=== PATIENT | male | born 1950 | race Caucasian/White ===

== ENCOUNTER → 2017-10-02 10:24 | Outpatient (CLI) | payer MEDICARE, SELFPAY ==
--- NOTE | 2017-10-02 | DI.MRI.S_ITS ---
PROCEDURE: MR LUMBAR SPINE WO CON INDICATIONS: BILATERAL LOWER EXTREMITY PAIN TECHNIQUE: Noncontrast sagittal T1 spin echo and T2 fast echo, sagittal STIR, axial T1 and T2 fast spin echo through the lumbar spine. In cases with scoliosis, additional coronal T2 fast spin echo may be performed. COMPARISON: [facility], , L-SPINE WITHOUT CONTRAST, 04/25/2016, 14:18. [facility], CR, XR LUMBAR SPINE WITH OBLIQUES, 04/05/2017, 9:17. FINDINGS: Image quality: Excellent. Alignment and Curvature: There is a transitional element at L5. The same numbering system that was employed on the prior 04.25.16 MRI report will be employed on the current report. There is mild grade 1 retrolisthesis of T12 on L1, L1-L2, and L2 on L3. Mild grade 1 anterolisthesis of L4 on L5. Bone Marrow: Marrow is of normal overall signal. No acute vertebral body compression fractures. There is mild reactive signal within the endplates adjacent to the T12-L1, L1-L2, L2-L3, and L3-L4 intervertebral discs. Spinal Cord: Conus medullaris terminates at the L1-L2 disc space level. Visualized cord demonstrates normal signal and size. Paraspinous Soft Tissues: No paravertebral masses. L1-L2: Disc desiccation and diffuse disc bulge. Bilateral facet hypertrophy. Epidural lipomatosis. Moderate canal stenosis. Moderate right and mild left foraminal stenosis. No change. L2-L3: Disc desiccation and diffuse disc bulge. Bilateral facet and ligament hypertrophy. Epidural lipomatosis. Mild to moderate canal stenosis. Mild foraminal stenosis bilaterally. No change. L3-L4: Disc desiccation and diffuse disc bulge. Bilateral facet and ligamentum flavum hypertrophy. Epidural lipomatosis. Severe canal stenosis. Mild foraminal stenosis bilaterally. No change. L4-L5: Disc height loss and desiccation, as well as diffuse disc bulge. Bilateral facet hypertrophy. Mild canal stenosis. No foraminal stenosis bilaterally. No change. L5-S1: Bilateral facet hypertrophy. No significant canal, nor foraminal stenosis. IMPRESSION: 1. Transitional anatomy at the lumbosacral junction as described above and on the montage panel. 2. No change in severe canal stenosis at L3-L4 secondary to disc and facet disease, ligamentum flavum hypertrophy, and epidural lipomatosis. 3. No change in multilevel foraminal stenoses, worst on the right at L1-L2 where there is moderate foraminal stenosis. Dictated by: Aldair Hager M.D. on 10/02/2017 at 13:37 Approved by: Aldair Hager M.D. on 10/02/2017 at 13:41
== END ==
PROVIDERS: Family Provider Registered Nurse; PCP Registered Nurse; Referring Provider Orthopaedic Surgery; Visit Provider Physical Medicine & Rehabilitation Pain Medicine
DX: M48.061 Spinal stenosis, lumbar region without neurogenic claudication (principal)
CPT/HCPCS: 72148

== ENCOUNTER → 2018-08-15 12:59 | Outpatient (CLI) | payer MEDICARE, SELFPAY ==
--- NOTE | 2018-08-15 | DI.MRI.S_ITS ---
PROCEDURE: MR SHOULDER RT WO CON INDICATIONS: Unspecified disorder of synovium and tendon, right TECHNIQUE: Noncontrast oblique coronal T2 fast spin echo with fat saturation, oblique sagittal T1 spin echo and T2 fast spin echo with fat saturation, axial T1 spin echo and T2 fast spin echo with fat saturation through the shoulder. COMPARISON: None. FINDINGS: Image quality: Excellent. Rotator cuff: There is tendinosis and moderate grade articular surface partial thickness tear involving distal supraspinatus and infraspinatus at the insertion the humeral head extending to musculotendinous junction. Focal full-thickness perforation involving most anterior fibers of the distal supraspinatus at its insertion the humeral head is seen with approximately 1.7 cm medial retraction of torn tendon fibers. Tendinosis and low-grade intrasubstance partial thickness involving distal subscapularis is seen. Sagittal images demonstrate mild supraspinatus muscle atrophy. Bones and bursae: No bone marrow contusions or fractures. Moderate acromioclavicular joint and glenohumeral joint osteoarthritis is seen. Moderate amount of joint effusion or subacromial subdeltoid bursal fluid is seen, no gross intra-articular loose body. Capsule and soft tissues: In the absence of intra-articular contrast, there is suggestion of extensive superior labral tear from 10 to 2:00 position. The glenohumeral ligaments appear intact. The long head of the biceps tendon demonstrates normal location and morphology. The rotator interval appears normal, without fibrosis. The coracohumeral ligament is normal in thickness. IMPRESSION: 1. Tendinosis and moderate grade articular surface partial thickness tear involving distal supraspinatus and infraspinatus with focal full-thickness tear involving most anterior fibers of the distal supraspinatus at its insertion the humeral head with 1.7 cm medial retraction of torn tendon fibers. Mild supraspinatus muscle atrophy. Tendinosis and low-grade intrasubstance partial-thickness tear involving distal subscapularis. 2. Moderate acromioclavicular joint and glenohumeral joint osteoarthritis. A moderate amount of joint fluid in subacromial subdeltoid bursal fluid. No gross loose body. 3. Suggestion of extensive superior labral tear extending from 10 to 2:00 position. Dictated by: Edmund Marina M.D. on 08/15/2018 at 14:21 Approved by: Edmund Marina M.D. on 08/15/2018 at 14:28
== END ==
PROVIDERS: Family Provider Registered Nurse; PCP Registered Nurse; Visit Provider Orthopaedic Surgery
DX: M75.121 Complete rotator cuff tear or rupture of right shoulder, not specified as traumatic (principal); M19.011 Primary osteoarthritis, right shoulder
CPT/HCPCS: 73221

== ENCOUNTER → 2020-04-27 17:01 | Outpatient (CLI) | payer MEDICARE, SELFPAY ==
--- NOTE | 2020-04-27 | DI.MRI.S_ITS ---
PROCEDURE: MR LUMBAR SPINE WO CON INDICATIONS: spinal stenosis, lumbar region with neurogenicia TECHNIQUE: Noncontrast sagittal T1 spin echo and T2 fast echo, sagittal STIR, axial T1 and T2 fast spin echo through the lumbar spine. In cases with scoliosis, additional coronal T2 fast spin echo may be performed. COMPARISON: [facility] [place], CR, XR LUMBAR SPINE WITH OBLIQUES, 04/05/2017, 9:17. [facility], , MR LUMBAR SPINE WO CON, 10/02/2017, 11:00. [facility] [place], CR, XR LUMBAR SPINE 2 OR 3 VIEWS, 04/16/2020, 14:37. FINDINGS: Image quality: Excellent. Alignment and Curvature: There is mild L1-L2 and L2-L3 retrolisthesis. There is mild L3-L4 anterolisthesis. There is trace L4-L5 anterolisthesis. Bones: There is transitional anatomy with sacralization of the L5 vertebral body. Mild reactive endplate changes noted adjacent to the L1-L2, L2-L3, L3-L4 and L5-S1 discs. No acute vertebral body compression fractures. Spinal Cord: Conus medullaris terminates at the L1 -2 disc level. Visualized cord demonstrates normal signal and size. Paraspinous Soft Tissues: No paravertebral masses. L1-L2: Loss of disc signal and height. Mild, diffuse disc bulge. Mild bilateral facet hypertrophy. Mild to moderate narrowing of the central canal. Moderate to severe right and mild left neural foraminal narrowing with slight compression of the exiting right L1 nerve root.. L2-L3: Loss of disc signal. Mild, diffuse disc bulge. Moderate to severe facet hypertrophy. Severe ligamentum flavum hypertrophy. Moderate to severe narrowing of the central canal with crowding of the nerve roots of the cauda equina. Small right central disc extrusion which extends inferiorly along the posterior margin of the L3 vertebral body to a pedicular level. Extruded disc material abuts and slightly compresses the traversing right L3 nerve root. Moderate bilateral neural foraminal narrowing. L3-L4: Loss of disc signal and slight loss of disc height. Mild, diffuse disc bulge. Severe bilateral facet hypertrophy. Moderate to severe narrowing of the central canal with crowding of the nerve roots of the cauda equina. Moderate to severe bilateral neural foraminal narrowing with slight compression of the exiting L3 nerve roots. L4-L5: Loss of disc signal and slight loss of disc height. Severe bilateral facet hypertrophy. Mild to moderate narrowing of the central canal. Mild bilateral neural foraminal narrowing. No neural compression. L5-S1: Slight loss of disc signal. Mild bilateral facet hypertrophy. No central stenosis. No neural foraminal narrowing. No neural compression. IMPRESSION: 1. Transitional anatomy with sacralization of the L5 vertebral body. 2. Grade 1 L1-L2, L2-L3, L3-L4 and L4-L5 degenerative spondylolisthesis. Three. Multilevel degenerative disc disease. 4. Multilevel facet arthropathy. 5. Moderate to severe L2-L3 and L3-L4 central canal narrowing with crowding of the traversing nerve roots of the cauda equina. Please correlate with clinical data. 6. Moderate to severe bilateral L3-L4 neural foraminal narrowing with slight compression exiting bilateral L3 nerve roots. Please correlate with clinical data. 7. Small right central L2-L3 disc extrusion which abuts and slightly compresses the traversing right L3 nerve root. Please correlate with clinical data Dictated by: Daisy Velazquez MD, PhD on 04/28/2020 at 12:41 Approved by: Daisy Velazquez MD, PhD on 04/28/2020 at 12:49
== END ==
PROVIDERS: Family Provider Registered Nurse; PCP Registered Nurse; Referring Provider Orthopaedic Surgery; Visit Provider Orthopaedic Surgery
DX: M48.062 Spinal stenosis, lumbar region with neurogenic claudication (principal); M47.816 Spondylosis without myelopathy or radiculopathy, lumbar region; M47.817 Spondylosis without myelopathy or radiculopathy, lumbosacral region; M43.16 Spondylolisthesis, lumbar region; M43.26 Fusion of spine, lumbar region; M51.26 Other intervertebral disc displacement, lumbar region
CPT/HCPCS: 72148

== ENCOUNTER → 2021-04-08 11:41 | Outpatient (CLI) | payer MEDICARE, SELFPAY ==
[2021-04-08 13:36] LABS: COVID19 -Nasal RAPID Negative (Negative)
== END ==
PROVIDERS: Family Provider Registered Nurse; PCP Registered Nurse; Visit Provider Nurse Practitioner Family
DX: Z20.822 Contact with and (suspected) exposure to COVID-19 (principal)
CPT/HCPCS: 87635; C9803

== ENCOUNTER 2021-04-11 05:57 | Day surgery (SDC) | payer MEDICARE, SELFPAY ==
[2021-04-04 09:33] VITALS: BMI 27.9
[2021-04-11] VITALS (14 sets, daily range): BP systolic 118–163; BP diastolic 72–114; PULSE 79–91; RESP 11–18; TEMP 36.2–36.7; O2SAT 94–99; BMI 27.9
--- NOTE | 2021-04-11 06:00 | DI.RAD.S_ITS ---
PROCEDURE: XR KNEE LT 1TO2V INDICATIONS: post op total knee TECHNIQUE: Two view(s) of the knee acquired. COMPARISON: None. FINDINGS: Bones: Patient is status post knee joint arthroplasty. Hardware components are in expected positions. Visualized bony structures are intact. Soft tissues: Overlying postoperative changes are noted. Prominent joint effusion. IMPRESSION: Expected appearance post left knee arthroplasty. Dictated by: Kerrie Dumont M.D. on 04/11/2021 at 14:01 Approved by: Kerrie Dumont M.D. on 04/11/2021 at 14:02
[2021-04-11] MEDS: CELECOXIB 200 MG CAPSULE PO (07:21)
[2021-04-11] MEDS: ACETAMINOPHEN 325 MG TABLET 975 MG PO (07:22)
[2021-04-11] MEDS: PREGABALIN 75 MG CAPSULE PO (07:22)
--- NOTE | 2021-04-11 07:22 | PM.PREOP ---
Pre-operative Note COVID-19 COVID-19 status: Negative Result date/Date tested (Pos, Neg/Pending): 04/08/21 Interval Note History & Physical reviewed/Exam performed by Physician: Yes Changes to H&P: No
[2021-04-11] MEDS: LACTATED RINGERS 1,000 ML 84 ML IV ×2 (07:23→10:36)
--- NOTE | 2021-04-11 07:24 | PM.OP.1 ---
Operative Date/Time/Diagnoses Date of procedure: 04/11/21 Time of procedure: 09:48 Pre-op diagnosis: Left knee osteoarthritis Post-op diagnosis: same Procedure & Clinicians Procedure: Left total knee replacement Same procedure as scheduled: Yes Indications: The patient has had progressively worsening left knee pain with radiographic changes consistent with arthritis. Non-operative management has failed and the patient has requested total knee replacement. The risks, benefits and alternatives to surgery were discussed with the patient prior to proceeding. Risks discussed included, but were not limited to, failure to relieve pain, stiffness, infection, nerve damage, deep venous thrombosis, pulmonary embolism, stroke, coma, heart attack, permanent paralysis and , as well as the potential need for eventual revision of the prosthetic. Surgeon: Iron Galeana Science Technicians: Fátima Clark Click Yes if Unassisted: No Anesthesia Type: General, Spinal and Local Operative Notes Findings: Significant osteoarthritic change in the patellofemoral and lateral compartment with bone exposed and large osteophytes. This exceeded the severity indicated on x-rays. Closure Type: primary Specimen(s): none sent Prosthetic devices, grafts, tissues, transplants, or devices: Implants used in this procedure were manufactured by the [employer] and included the BCS II Journey total knee replacement with a size 8 left cobalt chromium femur, a size 7 left non porous tibial base plate, a 9 mm cross-linked polyethylene tibial insert and a 38 mm oval Massiel II patellar component. Applied: implant(s) Estimated Blood Loss (mL): 50 Blood products transfused: none Tourniquet time (min): 50 Procedure in detail: The patient was seen in the pre-operative area, where the left knee was identified as the operative site and this was marked with my initials. The patient received pre-operative antibiotics, and was taken to the operating room and placed on the operative table in the supine position. After satisfactory anesthesia, a director of tax services out was performed. The left leg was encircled with a tourniquet about the proximal thigh, and the leg was prepared from the toes to the tourniquet with ChloroPrep in the usual fashion and draped through sterile drapes. The leg was elevated and exsanguinated with Eschmark bandage and the tourniquet inflated to 250 mmHg pressure. The knee was approached through an approximately 18 cm incision centered over the patella and carried into the knee through a medial parapatellar arthrotomy. The anterior osteophytes and soft tissues were removed. The rotational landmarks of [place]'s line and the transepicondylar axis were marked on the femur with electrocautery, and intramedullary guide holes for the femur and tibia were created. The distal femoral cut was made in 6 degrees of valgus using the intramedullary guide at the primary cut setting. The proximal tibial cut was then made using the intramedullary guide, taking 7 mm of bone off the less involved medial side. The extension gap was checked and the rotation of the femoral component confirmed with the gap balancing blocks. The anterior, posterior and chamfer cuts were then made. The posterior osteophytes and soft tissues were then removed. The posterior capsule was injected with part of a mixture of 60 ml 0.25% Marcaine mixed with 20 ml Exparel and 4 mg of morphine for post-operative pain control. The remainder of this mixture was injected into the capsule and subcutaneous tissues during cement curing. The tibia was prepared with the rotation set by an extra medullary guide. Trial tibial and femoral components were then placed and the intercondylar notch cut through the femoral trial. Range of motion was 0-135 degrees, with good stability throughout the range. The patella was then cut to accommodate the patellar prosthetic. There was no need for a lateral release. The trials were then removed, and the femoral hole plugged with a bone plug. The bone was prepared with pulsatile lavage, and dried with a sponge. Cement was applied and the final prosthetics placed. Excess cement was removed during and after cement curing. After confirming there was no extruded cement posteriorly, the final tibial insert was placed. The knee was copiously irrigated and the tourniquet deflated. Hemostasis was obtained. The capsule was closed with interrupted # 2 polyester sutures. The subcutaneous layer was closed with 3-0 Vicryl, and the skin with a running 3-0 V-Lock suture and Dermabond. An Aquacel Ag dressing was applied and the patient was taken to recovery having tolerated the procedure well. Complications: none Post-operative Condition: stable Disposition: PACU Plan for aftercare: The patient will be maintained on a standard total knee replacement protocol with weight bearing as tolerated. The patient will receive aspirin and sequential compression devices for DVT prophylaxis. The patient will be discharged home when safe for the home environment.
[2021-04-11] MEDS: CEFAZOLIN 2 GM/20 ML SYRINGE IV (08:10)
[2021-04-11] MEDS: TRANEXAMIC ACID 1,000 MG VIAL 1000 MG INJ ×2 (08:19→09:15)
--- NOTE | 2021-04-11 08:30 | SUR.OPER ---
Supine on padded OR bed. Pillow under head, arms secured on padded armboards <90 degree abduction. Safety belt across torso. Non-operative leg secured with tape over blanket over lower leg. Operative leg secured in DeMayo/Aries/Nathe positioner. Foam padded brace at thigh of operative leg.
[2021-04-11] MEDS: BUPIVACAINE LIPOSOME 266 MG/20 ML VIAL INJ (08:36)
[2021-04-11] MEDS: BUPIVACAINE 0.25% (PF) 60 ML, EPINEPHrine 0.3 MG INJ (08:36)
[2021-04-11] MEDS: MORPHINE 4 MG/ML INJ INJ (08:37)
[2021-04-11] MEDS: fentaNYL 100 MCG/2 ML INJ IV ×2 (10:02→10:10)
[2021-04-11] MEDS: OXYCODONE IR 5 MG TABLET PO ×2 (10:29→10:42)
[2021-04-11] MEDS: LACTATED RINGERS 1,000 ML 100 ML IV ×2 (11:14→21:26)
[2021-04-11] MEDS: HYDROMORPHONE 0.5 MG INJ 0.2 MG IV ×2 (11:24→12:43)
--- NOTE | 2021-04-11 15:06 | PT.IIE ---
Addendum entered and electronically signed by Yissel Ham PT 04/11/21 17:01: POC updated to twice daily. Original POC incorrect. Original Note: Current Diagnoses Unilateral primary osteoarthritis, left knee (04/11/21) Surgery Performed Operation Date: 04/11/21 07:45 Actual Procedures p Total Knee Arthroplasty(Left) - Iron Galeana MD Medical History (Last Updated 04/08/21 @ 08:23 by Kristyn Schaefer RN) Afib Arthritis Chronic systolic CHF (congestive heart failure) Diverticulitis Gout Hearing loss Kidney stones Paroxysmal A-fib Prostate cancer (~2009) Pure hypercholesterolemia RBBB (right bundle branch block) Skin cancer TIA (transient ischemic attack) (01/16/01) Physical Therapy Inpatient Evaluation/Re-Eval M1 PT/OT-IP Prior Functional Status Start: 04/11/21 12:00 Freq: NEEDED Status: Active Protocol: Document 04/11/21 15:06 JG (Rec: 04/11/21 15:50 JG [id number]) Medical Review Prior Functional Status Medical History Reviewed Yes Communication Pt was able to communicate clearly and fully Mobility and Gait unlimited with amb Activities of Daily Living and IADL's indep in all ADLs Prior Functional Level (Other details) last 6 weeks pt has reduced physical activity by limiting all unneccessary walking and minimizing weight training. pt typically completes calisthenics daily. pt typically experiences pain in low back and has received surgerical interventions in his lumbar spine. Pt states he experiences low back pain due to compensations from L knee arthritis. 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 Due to pain, discontinued running and stays active through weight lifting and calisthenics. Social History Household Members spouse Living Arrangements House Number of Floors (Floors) Two Floors Number of Stairs To Enter/Railing? 4 LILIANA, railing on R. Split level home: 6 steps to access top level w/railing on R, 6 steps to access bottom level w /railing on L upon entry. 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 Spouse of 40+ years lives w/pt. Spouse is available and able to caregive for pt. 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 M2 PT-IP Current Condition Start: 04/11/21 12:00 Freq: NEEDED Status: Active Protocol: Document 04/11/21 15:06 JG (Rec: 04/11/21 15:50 JG [id number]) Physical Therapy Current Condition Current Condition Evaluation Date 04/11/21 Treatment Diagnosis L TKA, difficulty walking, reduced ROM Onset Date 04/11/21 M3 PT-IP Subjective Start: 04/11/21 12:00 Freq: NEEDED Status: Active Protocol: Document 04/11/21 15:06 JoeG (Rec: 04/11/21 15:50 J [id number]) Subjective Physical Therapy Visit Type Type Initial Evaluation Visit Start Time 14:14 Visit Stop Time 15:06 Total Visit Minutes 52 Notes SPT Gale was directly supervised by PT Yissel Number of TIE CUTTER Visits 0 Physical Therapy Visit Comments Patient Comments Pt was talkative and able to give full history. Pt had multiple inquisitive questions regarding mobility and pain compensation, rehabilitation expectations. Patient Goals Hopefully reduce low back pain through L TKA and rehabilitation Return home Therapy Pain Assessment Pain When Pain Assessed During Mobility Pain Present Pain Present Pain Reported Location left knee Intensity 8 Scale Used Numeric (0 - 10) Pain Behaviors Moaning Pain Management Techniques Apply Cold,Re-positioning, Timing of Activity with Medications M4 PT-IP Mobility and Gait Start: 04/11/21 12:00 Freq: NEEDED Status: Active Protocol: Document 04/11/21 15:06 JG (Rec: 04/11/21 15:50 J [id number]) PT-Bed Mobility Assessment Rolling Type of Rolling Roll to Left Level of Assist Standby Assistance,1 Person Assistance Supine to Sit Supine to Sit Minimal Assistance,1 Person Assistance Scooting Scooting to Edge of Bed Minimal Assistance PT-Transfer Assessment Sit to and From Stand Sit to and from Stand Minimal Assistance,1 Person Assistance Equipment Transfer Assistive Device Gait Belt,Front Wheeled Walker Orthotic/Prosthetic Devices or Brace: No Transfers Transfer Destination Bed,Chair Transfer Technique amb w/FWW Transfer Ability Level of Assist Minimal Assistance,1 Person Assistance Comments Mobility Comments Pt was supine in bed w/HOB elevated upon arrival. Pt able to roll SBA, but req min A w/ moving L LE from sidelying to dangling over bed and into ext while EOB. Pt able to sit SBA. Pt managed WBAT by using R LE significantly more during sit<>stand and amb. Pt transfered and amb w/FWW min A for FWW management, UE use, moving L foot ER>midline during amb, trunk from flex> upright posture. Pt amb bed> chair>around room>chair min A w/FWW. Gait Assessment Gait Gait Assistance Required: Minimum Assistance,1 Person Assist Distance (Feet) 40 Able to Maintain Weight Bearing Status Yes During Gait Assistive Devices Assistive Device Gait Belt,Front Wheeled Walker Orthotic/Prosthetic Devices or Brace: No Gait Deviations General Gait Pattern Decreased Stride Length, Decreased Feet Clearance Factors Limiting Gait Function Factors Limiting Gait Function Pain Comments Gait Comments Pt stood w/significant weight shift into R LE. As pt amb, L foot drifted into ER and pt was able to correct w/min cueing. See mobility comments for more details. Stair Climbing Assessment Comments Stair Climbing Comments Did not assess PT-Balance Assessment Sitting Balance and Reactions Static Sitting Balance Ability Normal Standing Balance and Reactions Static Standing Balance Ability Normal Dynamic Standing Balance Ability Normal M5 PT-IP Objective Assessments Start: 04/11/21 12:00 Freq: NEEDED Status: Active Protocol: Document 04/11/21 15:06 NADYA (Rec: 04/11/21 15:50 [id number]) Orientation Orientation/Cognition Level of Alertness Alert Orientation Name,Place,Situation Language Function Ability No Deficits Noted Safety Awareness Understands Safety Issues Memory Description No Deficits Noted Strength Lower Extremity Strength Assessment Left Impaired Hip R flex 4/5 Knee R flex 5/5 Ankle R DF 5/5, R PF 5/5 Comments Strength Comments L not tested due to TKA Coordination Assessment Gross Coordination Gross Coordination WNL Sensation Assessment Sensation Gross Sensation Left LE Impaired Light Touch Impaired Proprioception (Position) Intact Comments Sensation Comments L LE distal to knee had decreased sensation likely due to spinal Muscle Tone Muscle Tone WNL Yes M6 PT-IP Treatment Start: 04/11/21 12:00 Freq: NEEDED Status: Active Protocol: Document 04/11/21 15:06 NADYA (Rec: 04/11/21 15:50 [id number]) Physical Therapy Treatment Education Education Provided Weight Bearing Status,Post-Op Packet,Safety M7 PT-IP Assessment and Plan Start: 04/11/21 12:00 Freq: NEEDED Status: Active Protocol: Document 04/11/21 15:06 JoeAugusto (Rec: 04/11/21 15:50 [email or web address] [id number]) PT Summary Assessment and Plan Potential Rehabilitation Potential Excellent Status of Condition at Evaluation Evolving Summary Impairments Pain,ROM,Sensation,Gait, Activity Tolerance Assessment Summary Rc is a 70 year old male who is being seen same-day recoverying from L TKA. Pt was formerly limited in activities due to low back pain which was exacerbated by arthritis L knee. Pt was able to complete bed mob, transfers , and amb w/FWW and min A, but is limited due to L knee pain and decreased ROM. Pt would benefit from IP PT to complete stair assessment and training , and further gait, transfer, and bed mob training. Pt would benefit from OP PT for TKA rehabilitation to improve knee ROM and strength, gait mechanics, and body mechanics during transfers. Goals Bed Mobility Goal Independent Transfer Goal Independent,Front Wheeled Walker Gait Goal Independent,Front Wheel Walker Gait Distance 500 Other Goals Pt is able to ascend and descend 8 steps w/1 railing indep Days to Meet Goals 2 Frequency of Treatment Frequency Of Treatment Once a Day Treatment Plan Physical Therapy Treatment Plan Bed Mobility Training,Transfer Training,Gait Training, Therapeutic Exercise,Post Op Education,Discharge Planning, Hot or Cold Pack,Neuromuscular Re-ed,Manual Therapy Other Recommendations and Next Treatment Pt should be assessed on Focus stairs and undergo stair training. Further gait training for activity tolerance. Therapeutic exercises for ROM. Further bed mobility and transfer training to increase mobility. Weight Bearing Status Weight Bearing Status Weight Bear as Tolerated Recommendations To Nursing Amount of Assist Needed 1 Person Assist Discharge Recommendations PT Discharge Recommendations Home,Outpatient PT Equipment Needed for Home Before Needs FWW Discharge Transportation Needs at Discharge Private Vehicle Treatment was provided by Gale Spear, SPT and supervised by Yissel Ham, PT. I personally reviewed this note and agree with its contents.
[2021-04-11] MEDS: ACETAMINOPHEN 325 MG TABLET 650 MG PO ×2 (15:29→20:12)
[2021-04-11] MEDS: OXYCODONE IR 10 MG TABLET PO ×2 (15:29→23:15)
[2021-04-11] MEDS: dilTIAZem CD 240 MG CAP PO (17:23)
[2021-04-11] MEDS: FOLIC ACID 1 MG TABLET PO (17:23)
[2021-04-11] MEDS: GABAPENTIN 300 MG CAPSULE 1800 MG PO (20:12)
[2021-04-11] MEDS: allopurinoL 100 MG TABLET 200 MG PO (20:12)
[2021-04-11] MEDS: DABIGATRAN 75 MG CAPSULE 150 MG PO (20:12)
[2021-04-11] MEDS: DOCUSATE 100 MG CAPSULE PO (20:12)
[2021-04-12] MEDS: HYDROMORPHONE 0.5 MG INJ 0.2 MG IV ×2 (00:14→03:01)
[2021-04-12] MEDS: HYDROMORPHONE 2 MG TABLET PO (01:14)
[2021-04-12 05:49] LABS: Hematocrit 32.7 % (41-53)
[2021-04-12 07:45] VITALS: BP 148/61; PULSE 84; RESP 18; O2SAT 97
[2021-04-12] MEDS: ACETAMINOPHEN 325 MG TABLET 650 MG PO (08:03)
[2021-04-12] MEDS: DABIGATRAN 75 MG CAPSULE 150 MG PO (08:03)
[2021-04-12] MEDS: OXYCODONE IR 10 MG TABLET PO ×2 (08:08→11:09)
[2021-04-12] MEDS: allopurinoL 100 MG TABLET 200 MG PO (08:13)
[2021-04-12 09:00] VITALS: TEMP 37.1
[2021-04-12] MEDS: INFLUENZA HD VACCINE 0.7 ML SYRINGE IM (09:10)
[2021-04-12] MEDS: DOCUSATE 100 MG CAPSULE PO (09:10)
--- NOTE | 2021-04-12 10:06 | PC.NURSE ---
Addendum entered by Richard Olivier R.N. 04/12/21 13:02: 12:14 Pt readied for discharge, IV d/c'd intact, and escorted to private car. Pt alert and oriented, following commands. Bruno positioning in car. Surgical site intact. Dressing CDI. Original Note: Pt alert and oriented. Pain meds per schedule. Taking PO well. Up with PT. Using walker. Left lower extremity dressing CDI. Ice to LLE prn.
--- NOTE | 2021-04-12 10:15 | PT.IPTN ---
Current Diagnoses Unilateral primary osteoarthritis, left knee (04/11/21) Surgery Performed Operation Date: 04/11/21 07:45 Actual Procedures p Total Knee Arthroplasty(Left) - Iron Galeana MD Physical Therapy Treatment Note M2 PT-IP Current Condition Start: 04/11/21 12:00 Freq: NEEDED Status: Active Protocol: Document 04/11/21 15:06 JG (Rec: 04/11/21 15:50 JG [id number]) Physical Therapy Current Condition Current Condition Evaluation Date 04/11/21 Treatment Diagnosis L TKA, difficulty walking, reduced ROM Onset Date 04/11/21 M3 PT-IP Subjective Start: 04/11/21 12:00 Freq: NEEDED Status: Active Protocol: Document 04/12/21 09:48 KS (Rec: 04/12/21 12:29 KS [id number]) Subjective Physical Therapy Visit Type Type Treatment Note Visit Start Time 09:48 Visit Stop Time 10:15 Total Visit Minutes 27 Notes Pt agreeable to work w/ therapy. Number of PERSONALIZED LIVING MANAGER NURSE Visits 1 Physical Therapy Visit Comments Patient Goals Hopefully reduce low back pain through L TKA and rehabilitation Return home M4 PT-IP Mobility and Gait Start: 04/11/21 12:00 Freq: NEEDED Status: Active Protocol: Document 04/12/21 09:48 KS (Rec: 04/12/21 12:29 KS [id number]) PT-Bed Mobility Assessment Rolling Type of Rolling Roll to Left Level of Assist Standby Assistance,1 Person Assistance Supine to Sit Supine to Sit Standby Assistance Sit to Supine Sit to Supine Standby Assistance Scooting Scooting to Edge of Bed Standby Assistance PT-Transfer Assessment Sit to and From Stand Sit to and from Stand Contact Guard Assistance,1 Person Assistance,Use of Upper Extremities Equipment Transfer Assistive Device Gait Belt,Front Wheeled Walker Orthotic/Prosthetic Devices or Brace: No Transfers Transfer Destination Bed Transfer Technique amb w/FWW Transfer Ability Level of Assist Contact Guard Assistance,1 Person Assistance,Use of Upper Extremities Comments Mobility Comments Pt in bed upon arrival from therapy w/ in room. SBA for sup<>sit and scooting EO. Pt then sit<>stand CGA and cues for hand placement. Pt then ambulated ~150 ft to stairs w/ FWW SBA to CGA. Decreased stride and weight bearing on LLE due to pain. Cues for equal step length. Pt then ascended/descended 3 stairs x2 w/ R rail CGA and cues for sequencing on first set and SBA and cues by on second set. Pt then ambulated additional ~150 ft back to room and got into bed SBA. Pt left in bed w/ all needs in reach. Gait Assessment Gait Gait Assistance Required: Standby Assistance,Contact Guard Assist,1 Person Assist Distance (Feet) 300 Able to Maintain Weight Bearing Status Yes During Gait Assistive Devices Assistive Device Gait Belt,Front Wheeled Walker Orthotic/Prosthetic Devices or Brace: No Gait Deviations General Gait Pattern Antalgic,Decreased Stride Length,Decreased Feet Clearance,Flexed Trunk Factors Limiting Gait Function Factors Limiting Gait Function Pain Comments Gait Comments Cues for upright posture and equal step length Stair Climbing Assessment Evaluation Level of Assist On Stairs Standby Assistance,Contact Guard Assistance,1 Person Assistance Devices Stair Climbing Assistive Devices Right Railing Technique/Endurance Stair Climbing Direction Ascend and Descend Stair Climbing Technique Step to Step Number of Steps Climbed 3 Stair Climbing Set # Repetitions (reps) 2 Comments Stair Climbing Comments Pt ascended/descended 6 total steps w/ R rail and step to pattern SBA to CGA. Pt and state they feel safe to complete steps at home. PT-Balance Assessment Sitting Balance and Reactions Static Sitting Balance Ability Normal Dynamic Sitting Balance Ability Good Standing Balance and Reactions Static Standing Balance Ability Good Dynamic Standing Balance Ability Good Device Used FWW M5 PT-IP Objective Assessments Start: 04/11/21 12:00 Freq: NEEDED Status: Active Protocol: Document 04/11/21 15:06 Joe (Rec: 04/11/21 15:50 [id number]) Orientation Orientation/Cognition Level of Alertness Alert Orientation Name,Place,Situation Language Function Ability No Deficits Noted Safety Awareness Understands Safety Issues Memory Description No Deficits Noted Strength Lower Extremity Strength Assessment Left Impaired Hip R flex 4/5 Knee R flex 5/5 Ankle R DF 5/5, R PF 5/5 Comments Strength Comments L not tested due to TKA Coordination Assessment Gross Coordination Gross Coordination WNL Sensation Assessment Sensation Gross Sensation Left LE Impaired Light Touch Impaired Proprioception (Position) Intact Comments Sensation Comments L LE distal to knee had decreased sensation likely due to spinal Muscle Tone Muscle Tone WNL Yes M6 PT-IP Treatment Start: 04/11/21 12:00 Freq: NEEDED Status: Active Protocol: Document 04/12/21 09:48 KS (Rec: 04/12/21 12:29 KS [id number]) Physical Therapy Treatment Education Education Provided Weight Bearing Status,Post-Op Packet,Safety Other Treatments Other Treatment Performed Dispensed FWW for home use M7 PT-IP Assessment and Plan Start: 04/11/21 12:00 Freq: NEEDED Status: Active Protocol: Document 04/12/21 09:48 KS (Rec: 04/12/21 12:29 KS [id number]) PT Summary Assessment and Plan Potential Rehabilitation Potential Excellent Status of Condition at Evaluation Evolving Summary Impairments Pain,ROM,Sensation,Gait, Activity Tolerance Progress Towards Goals Progressing Toward Goals Assessment Summary Pt SBA to CGA at most for all mobility including transfers, ambulation, and stairs. Able to ambulated ~300 ft w/ FWW and cues for equal step length and upright posture. Ascended /descended 6 steps R rail and step to pattern w/ cues for sequencing. He will benefit from outpatient rehab to improve strength and ROM. Goals Bed Mobility Goal Independent Transfer Goal Independent,Front Wheeled Walker Gait Goal Independent,Front Wheel Walker Gait Distance 500 Other Goals Pt is able to ascend and descend 8 steps w/1 railing indep Days to Meet Goals 2 Frequency of Treatment Frequency Of Treatment Twice a Day Treatment Plan Physical Therapy Treatment Plan Bed Mobility Training,Transfer Training,Gait Training, Therapeutic Exercise,Post Op Education,Discharge Planning, Hot or Cold Pack,Neuromuscular Re-ed,Manual Therapy Other Recommendations and Next Treatment Pt should be assessed on Focus stairs and undergo stair training. Further gait training for activity tolerance. Therapeutic exercises for ROM. Further bed mobility and transfer training to increase mobility. Weight Bearing Status Weight Bearing Status Weight Bear as Tolerated Recommendations To Nursing Amount of Assist Needed 1 Person Assist Discharge Recommendations PT Discharge Recommendations Home,Outpatient PT Equipment Needed for Home Before FWW given Discharge Transportation Needs at Discharge Private Vehicle
--- NOTE | 2021-04-12 10:29 | P.DS_ITS ---
History of Present Illness History of Present Illness Date Patient Seen: 04/12/21 Time Patient Seen: 07:55 Chief complaint: Knee pain Narrative: Pain is moderate. Denies fever or chills. No nausea or vomiting. Discharge Providers Provider Discharge Date: 04/12/21 Primary care physician: CALE Arambula Consults: 04/11/21 10:55 Consult to Discharge Planning Routine Comment: Consult to Physical Therapy Evaluate & Treat Comment: Physician Instructions: postop TKA protocol Discharge provider: Williams Nichols PA-C Summary Hospital Course Discharge Diagnosis: Left knee osteoarthritis Hospital Course: Left total knee replacement Same procedure as scheduled: Yes Indications: The patient has had progressively worsening left knee pain with radiographic changes consistent with arthritis. Non-operative management has failed and the patient has requested total knee replacement. The risks, benefits and alternatives to surgery were discussed with the patient prior to proceeding. Risks discussed included, but were not limited to, failure to relieve pain, stiffness, infection, nerve damage, deep venous thrombosis, pulmonary embolism, stroke, coma, heart attack, permanent paralysis and , as well as the potential need for eventual revision of the prosthetic. Surgeon: Iron Galeana Business Information Analyst: Fátima Clark Click Yes if Unassisted: No Anesthesia Type: General, Spinal and Local Operative Notes Findings: Significant osteoarthritic change in the patellofemoral and lateral compartment with bone exposed and large osteophytes.? This exceeded the severity indicated on x-rays. Closure Type: primary Specimen(s): none sent Prosthetic devices, grafts, tissues, transplants, or devices: Implants used in this procedure were manufactured by the [employer] and [employer] and included the BCS II Journey total knee replacement with a size 8 left cobalt chromium femur, a size 7 left non porous tibial base plate, a 9 mm cross-linked polyethylene tibial insert and a 38 mm oval Massiel II patellar component. Applied: implant(s) Estimated Blood Loss (mL): 50 Blood products transfused: none Tourniquet time (min): 50 Patient admitted to the hospital for left total knee replacement. Patient consented to the same. Patient taken operating room on April 11, 2021 and underwent left total knee replacement. Patient back in his room recovering well as in stable condition. Patient to be discharged home today in stable condition. Exam Vital Signs (past 8 hours): - 04/12/21 07:45 04/12/21 09:00 Temperature 98.8 F Pulse Rate 84 Respiratory Rate 18 Blood Pressure 148/61 H Pulse Oximetry 97 Oxygen Delivery Method Room Air Oxygen Flow Rate 0 Narrative Exam Narrative: 70-year-old male resting comfortably in bed in no apparent distress. Dressing is Clean, dry, intact.. Motor functions intact bilateral lower extremities. Sensation grossly intact to light touch bilateral lower extremities. Objective Labs Result Diagrams: 04/12/21 05:20 Labs: Laboratory Results - last 24 hr 04/12/21 05:20 Hgb 11.0 L Hct 32.7 L PFSH Medical History Afib Arthritis Chronic systolic CHF (congestive heart failure) Diverticulitis Gout Hearing loss Kidney stones Paroxysmal A-fib Prostate cancer (~2009) Pure hypercholesterolemia RBBB (right bundle branch block) Skin cancer TIA (transient ischemic attack) (01/16/01) Surgical History History of cardiac radiofrequency ablation Hx of appendectomy Hx of arthroscopy of left knee Hx of arthroscopy of right knee Hx of bilateral cataract extraction Hx of hemorrhoidectomy Hx of hernia repair Hx of laminectomy (~2018) Hx of lithotripsy Hx of shoulder surgery S/P epidural steroid injection Social History household members: spouse Smoking Status: Former smoker alcohol intake: current Discharge Assessment & Plan Assessment and Plan Assessment: Patient progressing as expected status post left total knee arthroplasty Plan of Treatment: Discharge home today in stable condition Discharge Plan Discharge Plan Patient Disposition: Home Discharge orders & Medications Discharge Orders: Discharge (Order); Ordered 04/12/21 Ordered By: Williams Nichols Prescriptions: New acetaminophen 325 mg Tablet 650 mg PO TID Qty: 60 0RF polyethylene glycol 3350 17 gram Powder In Packet 17 gm PO DAILY PRN (Reason: Constipation) Qty: 20 0RF hydromorphone 2 mg Tablet 2 mg PO Q3H PRN (Reason: Pain, Severe (7-10)) Qty: 30 0RF oxycodone 10 mg Tablet 10 mg PO Q3HR PRN (Reason: Pain, Severe (7-10)) Qty: 30 0RF Continued gabapentin 300 mg Capsule 1,800 mg PO BEDTIME 0RF folic acid 1 mg Tablet 1 mg PO QPM 0RF diltiazem HCl [Cardizem LA] 240 mg Tablet Extended Release 24 Hr 240 mg PO QPM 0RF Pradaxa 150 mg Capsule 150 mg PO BID 0RF allopurinol 100 mg Tablet 200 mg PO BID 0RF Follow up/Referrals: Iron Galeana MD [Physician] - (2 weeks) Nciole Miramontes ARNP [Primary Care Provider] - Diet/Activity/Treatments Diet: Diet as Tolerated Activity: Weight-bearing as tolerated Cold/Heat Therapy: Apply ice to knee is knee Skin/Wound/Dressing Care Report to your healthcare provider any signs of infection, such as:: chills, fever, increased pain, unusual drainage and unusual redness Dressing: Keep dressing clean and dry, may remove Manpreet wrap in 24-48 hours, leave dressing in place Visit Report/Discharge Packet Instructions: DI for Knee Replacement Stand Alone Forms: Surgery Discharge Discharge Data Primary Care Provider: Nicole Miramontes Attending Provider: Iron Galeana Quality VTE Deep Vein Thrombosis/Pulmonary Embolism Present on Admission: No
[2021-04-12 11:00] VITALS: TEMP 37.3
--- NOTE | 2021-04-12 11:42 | CM.DANOTE ---
DCP/Assessment: Reviewed chart. Patient is a 70yr old male admitted to [facility] for left TKA performed on 04-11-[address] Galeana. PCP is Nicole Miramontes. Primary payor is 1)Medicare 2)[facility]. Met with patient and spouse this AM explained CM/SW role. Patient alert and oriented at time of visit. Patient's spouse/Saritha at bedside. Patient reports that he plans to d/c home today. Patient seen and cleared by therapy. Patient plans to do outpatient therapy in [place]. Patient currently without a walker. HOME AIDE obtained order and therapy expected to dispense FWW prior to patient's discharge. P: Home today. KJS Discharge Planning/Care Management CM Discharge Assessment Start: 04/12/21 11:39 Freq: Status: Active Protocol: Document 04/12/21 11:39 KJS (Rec: 04/12/21 11:42 KJS [id number]) Discharge Planning Assessment Assigned Head Golf Coach JOSE Ruvalcaba Contact Information Saritha Alfonso (spouse) # Advance Directives? No Advance Directives on File No History Provided By Patient,Significant Other, Medical Record Prior Living Arrangements House Household Members spouse Type of transporation used prior to Drives own vehicle admit Independent with ADL's Yes Is patient alert and oriented? Yes Caregiver for Another No DME Already Rented / Owned FWW / Walker Comment Order obtained for FWW Patient/Family Preference OP PT Therapy Barriers to Discharge No Discharge Plan Home Transportation Arrangement Family to provide transport. Referrals Initiated None needed Whiteboard Updated in Patient Room with Yes name and ext. # of Head Golf Coach Review Status In Process Next Review Type Continued Stay Review Pre-Anesthesia Assessment Start: 04/04/21 09:33 Freq: Status: Active Protocol: Document 04/04/21 09:33 CAB (Rec: 04/04/21 10:09 CAB [id number]) Pre-Anesthesia Assessment Preferred Name Rich Patient Information Reviewed Via Phone Assessment Assessment Completed With Patient Diagnostic Results BMP/CMP,CBC,EKG Comment Outside Labs/EKG(2017) scanned , COVID screen @ 04/08/21 Primary Care Provider Nicole Miramontes Seen Specialist in Last 12 Months Yes Specialist Seen Washer [employer],Orthopedist Primary Language Serbian Starch And Prosize Mixer Required No Height 185.42 cm Weight 96.162 kg Body Mass Index (BMI) 27.9 Hearing Ability Hard of Hearing,Use of Hearing Aid Visual Assist None Dentition Type Teeth, Natural Present Barriers to Learning None Hx Anesthesia Reactions Yes: Woke during shoulder surgery, I have a high tolerance to anesthesia Hx Family Anesthesia Reaction Yes: My mother-they couldn't knock her out Hx Malignant Hyperthermia No Hx Blood Transfusions No Anesthesia Review Requested No alcohol intake current alcohol intake frequency 3 or more drinks per day Smoking Status Former smoker how long ago did patient quit smoking Quit 1970 Substance Use Type marijuana Comment Edible marijuana Pain Present Pain Reported Musculoskeletal Symptoms Back Pain,Joint Pain History of Falling (Recent or History of No ) Patient is completely paralyzed or No completely immobile Mental Status Oriented to own ability Comment Pt denies walking ability Is patient on oxygen? No Does patient have MIRANDA/SOB No Hx Sleep Apnea No CPAP/BIPAP use not prescribed Currently Taking a Beta Jacques No Hx Chest Pain No Hx SOB No Hx Syncope or Dizziness No Anti-Coagulant Therapy Yes: Pradaxa-advised to hold from 04/07/[address] Galeana Has a Washer Meat Yes: Dr. Burks/Macrina last visit 04/23/20 Hx Pacemaker/ICD No Pacemaker Rep Required? No Cardiac Clearance Received Yes Comment Cardiac records scanned Additional comment Pt states more recent visit w/ Cardiology, not available at present Diet Type At Home Regular dysphagia No Urinary Catheter Present No Hx Urinary Self Catheterization No Diabetes No Hx Drug Resistant Organism No Presence of External or Internal Medical Yes: Bilat IOLs, hearing aids, Devices seed implants Have you had any close contact with No someone diagnosed with COVID-19? Received a COVID vaccine? Yes: + Booster Received all doses? Yes Marital Status Lives With spouse Prior Living Arrangements House Number of Floors (Floors) Two Floors Support System Spouse Does the Patient Have Assistance After Yes Surgery Patient Discharge Plan Description Return Home Comment Pt advised possible same day surgery per surgeon Feels Safe in Current Environment Yes Been Physically Hurt or Threatened By a No Person in Current Environment Do you have thoughts of harming yourself None or others? Are you currently considering suicide? No Do you have a plan to hurt yourself or No Plan others? Do You Have Any Spiritual Beliefs That No May Affect Your HC Choices? Do You Have Any Cultural Practices That No May Affect Your HC Choices? Who Can We Speak to About Patient's Care Family, friends Identifying Code for Release of Patient Declines to issue Information Health Care Proxy/Next of Kin Saritha () Health Care Proxy or cell: [phone] Emergency Contact Name Saritha () Emergency Contact or cell: [phone] Advance Directives? No Advance Directives on File No Power of Auto Radiator Specialist Yes Power of Auto Radiator Specialist Name Saritha () Power of Auto Radiator Specialist or cell: PAC Instructions Durable medical equipment, Medications to take/avoid, Nasal antibiotic,No ETOH/ petroleum product on skin DOS, NPO,Post-op transportation,Pre -surgical wash,Sensory aids, Sturdy shoes/comfortable clothes,Do not bring valuables and remove jewelry
== END 2021-04-12 12:14 | disposition home or self-care (01) ==
LOC: OR 05:59 → AC 06:01
PROVIDERS: Family Provider Registered Nurse; PCP Registered Nurse; Referring Provider Orthopaedic Surgery; Visit Provider Orthopaedic Surgery
PROC: 0SRD0JZ Replacement of Left Knee Joint with Synthetic Substitute, Open Approach (ICD-10-PCS; CPT 27447; principal; 2021-04-11 07:45)
DX: M17.12 Unilateral primary osteoarthritis, left knee (principal); I48.91 Unspecified atrial fibrillation; Z23 Encounter for immunization
CPT/HCPCS: 27447; 36415; 73560; 85014; 85018; 90471; 90662; 97116; 97162; 97530; C1776; C9290; J0171; J0690; J1170; J2250; J2270; J3010

== ENCOUNTER 2022-10-24 10:25 | Day surgery (SDC) | payer MEDICARE, SELFPAY ==
[2021-04-11 06:52] VITALS: BMI 27.9
--- NOTE | 2022-10-24 | PATH_ITS ---
[facility] Accession Number: [id number] No. of containers..03 Tissue . 01 Material submitted: . PART A: colon - ASCENDING COLON POLYP PART B: cecum - CECUM POLYP PART C: colon - DESCENDING COLON POLYP . 01 Diagnosis: A. Ascending Colon, Polypectomy: Tubular adenoma. . B. Cecum, Polypectomy: Tubular adenoma. . C. Descending Colon, Polypectomy: Tubular adenoma. [facility] 10/30/2022 1438 Local . 01 Electronically signed: . Marion Diez MD, Pathologist NPI- [id number] . 01 Gross description: . Part A: ASCENDING COLON POLYP: Received in formalin is 1 fragment(s) of cooper, soft tissue measuring 0.3 x 0.2 x 0.2 cm submitted entirely in 1 cassette(s) Part B: CECUM POLYP: Received in formalin are multiple fragment(s) of cooper, soft tissue measuring 0.1 x 0.1 x 0.1 cm to 0.6 x 0.4 x 0.3 cm submitted entirely in 1 cassette(s) Part C: DESCENDING COLON POLYP: Received in formalin is 1 fragment(s) of cooper, soft tissue measuring 0.3 x 0.2 x 0.2 cm submitted entirely in 1 cassette(s) /KURT 10/25/2022 2309 Local . 01 Pathologist provided ICD-10: D12.2, D12.0, D12.4 . 01 CPT . 792458, 909956, 578849 Specimen Comment: A courtesy copy of this report has been sent to [phone] Performed at: 01 [facility] [address] [place] [address] [address] [facility], [place], [place] [id number] MD Nam Au MD Phone: [phone]
[2022-10-24 10:45] VITALS: BP 178/112; PULSE 94; RESP 19; TEMP 36.1; O2SAT 100; BMI 29.7
[2022-10-24] MEDS: LACTATED RINGERS 1,000 ML 200 ML IV (10:58)
--- NOTE | 2022-10-24 11:52 | PM.HP.1 ---
History of Present Illness History of Present Illness Date Patient Seen: 10/24/22 Time Patient Seen: 11:52 Chief complaint: Colonoscopy Narrative: 72-year-old man personal history of colonic polyps here for screening colonoscopy. Last colonoscopy 5 years ago notable for polyps. No abdominal pain blood per rectum nausea vomiting unintentional weight loss. No family history of intestinal malignancy. [facility] Medical History Afib Arthritis Chronic systolic CHF (congestive heart failure) Diverticulitis Gout Hearing loss Kidney stones Paroxysmal A-fib Prostate cancer (~2009) Pure hypercholesterolemia RBBB (right bundle branch block) Skin cancer TIA (transient ischemic attack) (01/16/01) Surgical History History of cardiac radiofrequency ablation Hx of appendectomy Hx of arthroscopy of left knee Hx of arthroscopy of right knee Hx of bilateral cataract extraction Hx of hemorrhoidectomy Hx of hernia repair Hx of laminectomy (~2018) Hx of lithotripsy Hx of shoulder surgery S/P epidural steroid injection Social History household members: spouse Smoking Status: Former smoker alcohol intake: current Meds Home Medications and Allergies Home Medications Medication Instructions Recorded Confirmed Type diltiazem HCl 240 mg 240 mg PO QPM blood pressure 09/04/17 10/24/22 History tablet,extended release 24 hr (Cardizem LA) gabapentin 300 mg capsule 1,800 mg PO BEDTIME Sleep 04/08/21 10/24/22 History Eliquis 5 mg PO DAILY 10/24/22 10/24/22 History metoprolol succinate 25 mg 25 mg PO DAILY 10/24/22 10/24/22 History tablet,extended release 24 hr rosuvastatin 20 mg tablet 20 mg PO DAILY 10/24/22 10/24/22 History Allergies Allergy/AdvReac Type Severity Reaction Status Date / Time No Known Drug Allergies Allergy Verified 10/24/22 10:36 Exam Vital Signs (past 8 hours): - 10/24/22 10:45 Temperature 97 F L Pulse Rate 94 H Respiratory Rate 19 Blood Pressure 178/112 H Pulse Oximetry 100 Oxygen Delivery Method Room Air Oxygen Delivery Method Room Air Narrative Exam Narrative: General adult man alert oriented no acute distress Extremities warm well perfused Assessment & Plan Assessment and plan (1) Personal history of colonic polyps: Status: Acute Assessment & Plan narrative: The patient requires colorectal screening and colonoscopy is recommended. Technical details were discussed. Risks, benefits, alternatives explained. Risks including but not limited to myocardial infarction, aspiration, bleeding, pain, missed lesion, incomplete examination, need for further radiographic studies, colonic perforation, and need for major abdominal surgery were discussed. All questions were answered to their satisfaction, and they are in agreement with this plan.
[2022-10-24 12:21] VITALS: BP 119/83; PULSE 80; RESP 16; TEMP 36.6; O2SAT 98
--- NOTE | 2022-10-24 12:25 | P.OP.COLON_ITS ---
Operative Date/Time/Diagnoses Date of procedure: 10/24/22 Time of procedure: 12:26 Pre-op diagnosis: Personal history of colonic polyps Post-op diagnosis: other (Colonic polyps x3) Procedure & Clinicians Study performed: Colonoscopy and polypectomy Same procedure as scheduled: Yes Indications: Personal history of colonic polyps Surgeon: Eleazar Medley Procedure Notes Procedure in detail: The history and physical was performed/updated and the patient is ASA class is 2. The procedure was discussed in detail with the patient. Potential risks complications including infection, bleeding, missed diagnosis, perforation, need for surgery, and were explained. Their questions were answered and informed consent was obtained. Patient was brought to the procedure room and placed standard monitoring equipment. The patient's vital signs were monitored continuously throughout the entire procedure. Prior to starting time-out was performed. The patient was placed in the left lateral recumbent position. Procedural sedation was admin istered by anesthesia. Examination began with a thorough inspection of the perianal area there was no evidence of fissures, fistulae, external hemorrhoids or cutaneous malignancy. The colonoscopy scope was then placed into the anal canal and was advanced to the cecum, which was identified by the ileocecal valve, the appendiceal orifice and the confluence of the taenia. The scope was then slowly withdrawn examining colon thoroughly in all directions, irrigating it of any residual stool. Within the cecum there were 2 polyps both less than 5 mm which were removed with biopsy forceps. Within the descending colon there was a 5 mm polyp removed with biopsy forceps. The descending and sigmoid colon were notable for extensive diverticulosis. The patient tolerated the procedure well. They will be discharged once criteria are met. The prep was of good/excellent quality. The withdrawl time was 12 minutes. Specimen(s): other (Cecal polyps, descending colonic polyp) Impression: Colonic polyps x3 Post-procedure Recommendations: High fiber diet Plan for aftercare: Follow-up is dependent on pathology findings Disposition: same day surgery
[2022-10-24 12:27] VITALS: BP 135/95; PULSE 92; RESP 14; O2SAT 99
[2022-10-24 12:32] VITALS: BP 145/82; PULSE 74; RESP 14; TEMP 36.6; O2SAT 99
[2022-10-24 12:38] VITALS: BP 148/80; PULSE 76; RESP 16; O2SAT 99
== END 2022-10-24 12:56 | disposition home or self-care (01) ==
PROVIDERS: Family Provider Registered Nurse; PCP Registered Nurse; Referring Provider Surgery; Visit Provider Surgery
PROC: 0DJD8ZZ Inspection of Lower Intestinal Tract, Via Natural or Artificial Opening Endoscopic (ICD-10-PCS; CPT 45378; principal; 2022-10-24 11:30)
DX: Z12.11 Encounter for screening for malignant neoplasm of colon (principal); Z86.010 Personal history of colon polyps; K57.30 Diverticulosis of large intestine without perforation or abscess without bleeding; D12.2 Benign neoplasm of ascending colon; D12.0 Benign neoplasm of cecum; D12.4 Benign neoplasm of descending colon
CPT/HCPCS: 45380

== ENCOUNTER → 2023-07-03 15:51 | Outpatient (CLI) | payer MEDICARE, SELFPAY ==
[2021-04-11 06:52] VITALS: BMI 27.9
--- NOTE | 2023-07-03 | DI.MRI.S_ITS ---
PROCEDURE: MR SHOULDER LT WO CON INDICATIONS: Calcific tendinitis of left shoulder TECHNIQUE: Noncontrast oblique coronal T2 fast spin echo with fat saturation, oblique sagittal T1 spin echo and T2 fast spin echo with fat saturation, axial T1 spin echo and T2 fast spin echo with fat saturation through the shoulder. COMPARISON: [facility], CR, XR SHOULDER 2+ VIEWS LEFT, 06/05/2023, 12:04. FINDINGS: Image quality: Excellent. Rotator cuff: Moderate to high-grade articular and bursal surface partial thickness tear involving distal supraspinatus at its insertion on the humeral head is seen extending to musculotendinous junction with focal areas of full-thickness perforation scattered in anterior to mid fibers of distal supraspinatus and up to 1.4 cm medial retraction of torn tendon fibers series 7, image 8 and series 9, image 16. Calcifications are noted involving distal supraspinatus near its insertion on the humeral head suggestive of hydroxyapatite deposition disease. Low-grade articular surface partial-thickness tear involving distal infraspinatus at its insertion on the humeral head is seen. Low-grade intrasubstance partial-thickness tear involving distal subscapularis is seen. Sagittal images demonstrate mild to moderate supraspinatus muscle atrophy. Bones and bursae: No bone marrow contusions or fractures. Moderate acromioclavicular joint osteoarthritic changes are seen with joint space narrowing and downward osteophyte formation depressing the musculotendinous junction of supraspinatus. Severe glenohumeral joint osteoarthritic changes are noted with complete loss of joint space, extensive subchondral sclerosis and prominent inferior marginal osteophyte formation. There is moderate joint effusion and subacromial subdeltoid bursal fluid, no gross loose bodies. Capsule and soft tissues: Global signal abnormality throughout left shoulder labrum suggestive of extensive labral tear. The long head of the biceps tendon demonstrates thickened with intrasubstance T2 hyperintense signal. The rotator interval appears normal, without fibrosis. The coracohumeral ligament is normal in thickness. IMPRESSION: 1. Moderate to high-grade articular and bursal surface partial thickness tear involving distal supraspinatus extending to musculotendinous junction with multiple areas of full-thickness perforation as described above. Mild to moderate supraspinatus muscle atrophy. Calcific tendinitis is also noted involving distal supraspinatus near its insertion on the humeral head. 2. Low-grade articular surface partial-thickness tear involving distal infraspinatus. Low-grade intrasubstance partial-thickness tear involving distal subscapularis. 3. Moderate acromioclavicular joint osteoarthritis and severe glenohumeral joint osteoarthritis. No fracture or dislocation. Moderate joint effusion and subacromial subdeltoid bursal fluid, no gross loose bodies. 4. Global signal abnormality throughout left shoulder labrum suggestive of extensive labral tear. 5. Tendinosis and low-grade intrasubstance partial-thickness tear involving proximal long head of biceps. Dictated by: Edmund Marina M.D. on 07/04/2023 at 9:21 Approved by: Edmund Marina M.D. on 07/04/2023 at 9:26
== END ==
PROVIDERS: Family Provider Registered Nurse; PCP Registered Nurse; Referring Provider Orthopaedic Surgery; Visit Provider Orthopaedic Surgery
DX: M75.32 Calcific tendinitis of left shoulder (principal); M75.112 Incomplete rotator cuff tear or rupture of left shoulder, not specified as traumatic; M19.012 Primary osteoarthritis, left shoulder; M25.412 Effusion, left shoulder; S46.112A Strain of muscle, fascia and tendon of long head of biceps, left arm, initial encounter
CPT/HCPCS: 73221

== ENCOUNTER → 2023-09-28 13:42 | Outpatient (CLI) | payer MEDICARE, SELFPAY ==
[2021-04-11 06:52] VITALS: BMI 27.9
--- NOTE | 2023-09-28 13:43 | DI.CT.S_ITS ---
PROCEDURE: CT UE LT WO CON INDICATIONS: Primary osteoarthritis, left shoulder TECHNIQUE: Noncontrast 0.75 mm thick sections acquired from the acromioclavicular joint to the inferior scapula, with coronal and sagittal reformatting. COMPARISON: [facility], CR, XR SHOULDER 2+ VIEWS LEFT, 06/05/2023, 12:04. FINDINGS: Image quality: Excellent. Bones: Mild degenerative change of the acromioclavicular joint. Type 1 acromion. No os acromiale. Ossification of the supraspinatus, representing prior injury. Severe degenerative changes of the glenohumeral joint with joint space narrowing and large humeral head osteophytosis. Remodeling of the glenoid. No retro version of the glenoid. No significant fatty atrophy of the rotator cuff musculature. 1.6 cm calcification in the subscapularis, representing prior injury. Soft tissues: The visualized left lung is unremarkable. Mild calcification of the aortic arch. Severe calcification of the LAD. The heart appears enlarged, partially visualized. No left axillary lymphadenopathy. IMPRESSION: 1. Severe degenerative change of the left glenohumeral joint. 2. Prior injury of the supraspinatus and the subscapularis. Dictated by: Mei Hurley M.D. on 09/28/2023 at 22:06 Approved by: Mei uHrley M.D. on 09/28/2023 at 22:12
== END ==
PROVIDERS: Family Provider Registered Nurse; PCP Registered Nurse; Referring Provider Orthopaedic Surgery; Visit Provider Orthopaedic Surgery
DX: M19.012 Primary osteoarthritis, left shoulder (principal)
CPT/HCPCS: 73200

== ENCOUNTER 2023-11-22 05:57 | Day surgery (SDC) | payer MEDICARE, SELFPAY ==
[2021-04-11 06:52] VITALS: BMI 27.9
[2023-11-13 09:57] VITALS: BMI 30.3
[2023-11-22] VITALS (7 sets, daily range): BP systolic 114–144; BP diastolic 69–98; PULSE 56–82; RESP 10–19; TEMP 36.3–37; O2SAT 91–97; BMI 31.1
--- NOTE | 2023-11-22 06:52 | DI.RAD.S_ITS ---
PROCEDURE: XR SHOULDER LT MIN 2V INDICATIONS: TSA TECHNIQUE: 2 views of the shoulder were acquired. COMPARISON: None. FINDINGS: Bones: Left shoulder arthroplasty changes. Hardware components are in expected position. No fractures or dislocations. No suspicious bony lesions. Visualized ribs appear intact. Soft tissues: No suspicious soft tissue calcifications. IMPRESSION: Expected postsurgical change for left shoulder arthroplasty. Dictated by: Daisy Velazquez MD, PhD on 11/22/2023 at 10:57 Approved by: Daisy Velazquez MD, PhD on 11/22/2023 at 10:57
[2023-11-22] MEDS: LACTATED RINGERS 1,000 ML 42 ML IV ×2 (07:18→09:58)
[2023-11-22] MEDS: ACETAMINOPHEN 325 MG TABLET 975 MG PO (07:21)
--- NOTE | 2023-11-22 07:26 | SUR.OPER ---
Beach chair with Fred/Daryl shoulder positioner. Lower body on padded OR bed. Head in foam padded head cradle, secured with straps. Non-operative arm secured <90 degrees abduction. Pillow under knees. Safety belt at thigh. Cloth tape over blanket over lower legs.
--- NOTE | 2023-11-22 07:31 | PM.PREOP ---
Pre-operative Note Interval Note History & Physical reviewed/Exam performed by Physician: Yes Changes to H&P: No
[2023-11-22] MEDS: VANCOMYCIN 1,500 MG/300 ML PIGGYBACK 200 MG IV (07:42)
--- NOTE | 2023-11-22 07:49 | SUR.PREOP ---
Block start time [0742] . Monitoring initiated and maintained throughout procedure. Oxygen and medications given per anesthesiologist instructions. Patient remained stable throughout procedure, no adverse reactions noted. Block end time [0749].
[2023-11-22] MEDS: GENTAMICIN 400 MG in SODIUM CHLORIDE 0.9% 100 ML 110 MG IV (08:05)
[2023-11-22] MEDS: LIDOCAINE 1% W/EPI 20 ML INJ (08:34)
--- NOTE | 2023-11-22 09:59 | P.OP_ITS ---
Operative Date/Time/Diagnoses Date of procedure: 11/22/23 Time of procedure: 07:45 Pre-op diagnosis: Left end-stage glenohumeral joint arthritis Post-op diagnosis: same Procedure & Clinicians Procedure: Left total shoulder arthroplasty Same procedure as scheduled: Yes Indications: Left end-stage glenohumeral joint arthritis Surgeon: Shakir Stahl Clinical Microbiologist: Aracely Arteaga Anesthesia Type: General and Peripheral nerve block Operative Notes Findings: End-stage arthritic changes to the glenohumeral joint with no sign full- thickness rotator cuff tears. Closure Type: primary Specimen(s): none sent Applied: implant(s) (Large cage screw, 53 trunnion, large glenoid, 53 x 22 humeral head) Estimated Blood Loss (mL): 50 Procedure in detail: On date of service, Patient was met in the holding area. The operative site was signed and witnessed by the OR staff. The surgeries once again discussed with the patient and any remaining questions they had were answered fully. Patient was taken back to the operating theater and placed on the operating table in a supine position. Great care was taken to ensure that all bony prominences were properly padded. Patient was then placed into the beach chair position. The head and neck were properly positioned and secured. A timeout was performed verifying patient's name, procedure, and the operative site. The upper extremity was then prepped and draped in the normal sterile fashion. Previously, the bony anatomy and incision were marked out as well as injected with Marcaine with epinephrine. A deltopectoral approach was performed. 10 blade was used to incise the skin and fascial tissue. A deep knife was used to continue sharp dissection until the cephalic vein was visualized. The cephalic vein was dissected free allowing us to expose the deltopectoral interval. This interval was then developed. A West elevator was used to free up the deltoid of any scarring both superficially as well as deeply. The vein and the deltoid were taken laterally while the pectoralis was taken medially. This gave us good visualization of the strap muscles. The clavipectoral fascia was removed and the strap muscles were then retracted medially with the pectoralis. This gave us stabilization of the subscapularis. The circumflex vessels were ligated and the subscapularis was sharply excised off the lesser tuberosity and then tagged. Once the subscapularis was released we're able to dislocate the shoulder. Patient had end-stage arthritic changes to the humeral head as well as the glenoid with large osteophytes anterior inferiorly as well as posteriorly. A Ronger was then used to remove the osteophytes. See findings above for descriptions of the humeral head and glenoid. Next, cutting guide was placed and a saw was used to remove the humeral head. Once the head was removed it was templated. A 53 head gave us the best coverage. Pin was placed to get an idea of the Stevie screws size for the eventual stem less head implant. A large gave us the best fit. The osteotomy site was protected with a cutting guide. We then turned our attention to the glenoid. The subscapularis was freed up and a 360? fashion. The degenerative anterior and inferior capsular tissue was removed. This was followed by removing the degenerative labral tissue from around the glenoid as well as the biceps insertion. Retractors were used to protect the axillary nerve while we remove the degenerative capsular and labral tissue. This gave us good visualization of the glenoid. Glenoid trials were used until we found the appropriate fit and curvature. A large glenoid provided the best fit. The center hole was drilled followed by reaming of the glenoid. The wound was copiously irrigated after reaming. Next the pegs were drilled and a trial glenoid was impacted into place. Once we were satisfied with the preparation of the glenoid, the final component was cemented into place. This was followed by impaction. We Return to our attention back to the humerus. The protector plate was removed and heads were trialed once again until we found the appropriate fit. Fifty- three base plate was placed followed by a large trunnion screw. Head trials were done and a 53 x 22 provided the best fit and stability. Trials were removed and bone tunnels were made into the humeral neck. #2 FiberWire were passed through the bone tunnels for eventual subscapularis repair. The final stem and head were impacted into place and the shoulder was reduced. It was taken through range of motion and was felt to be stable in both posterior translation as well as external and internal rotation with abduction. The subscapularis was repaired back to the lesser tuberosity through the bone tunnels. This was then reinforced with soft tissue repair. Part of the rotator interval was then closed. A drain was placed and the rest of the wound was closed in a layered fashion. The shoulder was then cleaned dried and dressed and the patient was taken to the PACU in stable condition. Patient will follow our postoperative protocol for total shoulder arthroplasty. Complications: none Post-operative Condition: stable Disposition: same day surgery Plan for aftercare: Patient will follow our postoperative protocol for total shoulder arthroplasty
--- NOTE | 2023-11-22 11:50 | SUR.PHASEII ---
PT DISCHARGED WITH ALL BELONGINGS, ALL DISCHARGE INSTRUCTIONS REVIEWED WITH PT AND PTS SPOUSE BOTH VERBALIZE UNDERSTANDING. BRACE PLACED WITH ASSISTANCE FROM STAFF AND PTS SPOUSE AND PT WITH UNDERSTANDING.
--- NOTE | 2023-11-22 11:53 | SUR.PHASEII ---
PT INSTRUCTED ON IS USE, ICE USE AND MEDICATION INSTRUCTIONS GIVEN VERBAL AND WRITING PT AND PTS SPOUSE VERBALIZED UNDERSTANDING OF ALL
== END 2023-11-22 11:50 | disposition home or self-care (01) ==
LOC: OR 05:59 → AC 06:03
PROVIDERS: Family Provider Registered Nurse; PCP Registered Nurse; Referring Provider Orthopaedic Surgery; Visit Provider Orthopaedic Surgery
PROC: (CPT 23472; principal; 2023-11-22 07:45)
DX: M19.012 Primary osteoarthritis, left shoulder (principal); M75.32 Calcific tendinitis of left shoulder; G89.18 Other acute postprocedural pain; M25.712 Osteophyte, left shoulder; I48.91 Unspecified atrial fibrillation; Z86.73 Personal history of transient ischemic attack (TIA), and cerebral infarction without residual deficits
CPT/HCPCS: 23472; 64450; 73030; C1713; C1776; J0330; J1100; J1885; J2405; J2704; J3010

== ENCOUNTER → 2024-02-27 11:03 | Outpatient (CLI) | payer MEDICARE, SELFPAY ==
[2021-04-11 06:52] VITALS: BMI 27.9
--- NOTE | 2024-02-27 11:04 | DI.MRI.S_ITS ---
PROCEDURE: MR HEAD/BRAIN WO CON INDICATIONS: SLURRED SPEECH TECHNIQUE: Non-contrast axial T1 spin echo, axial T2 fast spin echo, sagittal and axial FLAIR, coronal T2 fast spin echo, axial gradient echo, axial diffusion and ADC through the brain. COMPARISON: None. FINDINGS: Image quality: Excellent. CSF spaces: Ventricles appear symmetric in size and shape. Basal cisterns are patent. No extra-axial fluid collections. Brain: No intracranial bleeds or mass effects. There is cerebral volume loss for age. There are periventricular and deep white matter chronic small vessel ischemic changes. Brainstem appears normal. Diffusion-weighted images show no acute infarct. No chronic ischemic insults. Normal intravascular flow voids are present. Skull and face: Calvarial bone marrow is normal in signal. Orbits are normal. Note is made of bilateral lens replacements. Sinuses: Sinuses and mastoids are clear. IMPRESSION: No findings of acute or subacute infarction can be seen. No prior territorial infarct can be seen. Note is made of age-appropriate brain parenchymal volume loss and chronic small vessel ischemic changes. Dictated by: Guicho Carbajal M.D. on 02/27/2024 at 11:59 Approved by: Guicho Carbajal M.D. on 02/27/2024 at 12:00
== END ==
PROVIDERS: Family Provider Registered Nurse; PCP Registered Nurse; Referring Provider Registered Nurse; Visit Provider Registered Nurse
DX: R47.81 Slurred speech (principal)
CPT/HCPCS: 70551